=== PATIENT | female | born 1985 | race African-American/Black ===

== ENCOUNTER 2017-05-14 06:21 | Inpatient (IN) | payer OTHER ==
[~2017-05-14] VITALS: Ht 165.1 cm; Wt 113.4 kg
[2017-05-14] VITALS (11 sets, daily range): BP systolic 121–151; BP diastolic 54–79
[~2017-05-14 06:21] MED LIST: CYCLOBENZAPRINE10 MG ORAL; OXYCODONE HCL20 M1 ORAL
[2017-05-14] MEDS ORDERED: LR 1000ml 1,000 ML IVLG SCH (07:17)
--- NOTE | 2017-05-14 07:19 | Anethesia Preoperative Eval ---
Anesthesia Pre-op PMH/ROS General Date of Evaluation: May 14, 2017 Time of Evaluation: 09:01 Anesthesiologist: Valery ASA Score: ASA 2 Mallampati Score Class I : Soft palate, uvula, fauces, pillars visible Class II: Soft palate, uvula, fauces visible Class III: Soft palate, base of uvula visible Class IV: Only hard plate visible Mallampati Classification: Class II Surgeon: Carol Diagnosis: Back Pain Surgical Procedure: ALIF L4-5, L5-S1, PSF L5-S1 Anesthesia History: none Family History: no anesthesia problems Allergies: Coded Allergies: LATEX (Verified Allergy, Mild, SKIN RASH, 05/14/17) Medications: see eMAR Past Medical History Cardiovascular: Reports: HTN Pulmonary: Reports: other - Bronchitis Other: obesity - BMI 43 Anesthesia Pre-op Phys. Exam Physician Exam Vital Signs Date Time Temp Pulse Resp B/P (MAP) Pulse Ox O2 Delivery O2 Flow Rate FiO2 05/14/17 07:19 97.2 78 20 121/66 98 Room Air Constitutional: NAD Neurologic: CN 2-12 intact Cardiovascular: RRR Respiratory: CTA Gastrointestinal: S/NT/ND Airway Exam Mallampati Score: Class II MO: limited ROM: limited Teeth: intact Anesthesia Pre-op A/P Labs Urine Test Test 05/14/17 06:45 Urine HCG, Qualitative Negative Risk Assessment & Plan Assessment: ASA 2 Plan: GA, BIS, Glidescope Status Change Before Surgery: No Pre-Antibiotics Dru Grams Ancef IV Given Within 1 Hr of Incision: Yes Time Given: 09:16 Chepe Rasmussen MD May 14, 2017 07:19
[2017-05-14] MEDS ORDERED: Norco 5mg/325mg tab ORAL PRN ×2 (07:30→15:15)
[2017-05-14] MEDS ORDERED: Acetaminophen (Non formulary) 100 ML IV ONE (07:30)
[2017-05-14] MEDS ORDERED: fentaNYL 100 mcg/2 mL IV PRN ×2 (07:30→15:15)
[2017-05-14] MEDS ORDERED: Ketorolac 60mg Inj IM PRN ×2 (07:30→15:15)
[2017-05-14] MEDS ORDERED: Hydromorphone 0.5mg/0.5ml inj IVP PRN ×2 (07:30→15:15)
[2017-05-14] MEDS ORDERED: Norco 7.5mg/325mg tab ORAL PRN ×2 (07:30→15:15)
[2017-05-14] MEDS ORDERED: Metoclopramide 10mg/2ml Inj IVP PRN (07:30)
[2017-05-14] MEDS ORDERED: oxyCODONE HCL/Acetaminophen 5/325mg ORAL PRN (07:30)
[2017-05-14] MEDS ORDERED: LORazepam Inj 2mg/ml 1ml IV PRN ×2 (07:30→15:15)
[2017-05-14] MEDS ORDERED: Ketorolac 30mg Inj IV PRN ×2 (07:30→15:15)
[2017-05-14] MEDS ORDERED: Midazolam 2mg/2ml Inj IVP PRN ×2 (07:30→15:15)
[2017-05-14] MEDS ORDERED: DiphenhydrAMINE 50mg/ml Inj IVP PRN ×2 (07:30→15:15)
[2017-05-14] MEDS ORDERED: Atropine Inj 1mg/10ml Syr IV PRN ×2 (07:30→15:15)
[2017-05-14] MEDS ORDERED: ceFAZolin 1gm in D5W 55ml IVP ONE (07:45)
[2017-05-14] MEDS ORDERED: Thrombin 5000 units TOPIC ONE (07:49)
[2017-05-14] MEDS ORDERED: Surgicel 4in x 8in TOPIC ONE (07:49)
[2017-05-14] MEDS ORDERED: Bupivacaine w/Epi 0.75% 30ml Vial INJ ONE (07:50)
[2017-05-14] MEDS ORDERED: Bupivacaine 0.5% Inj 30 ml vial INJ ONE (07:50)
[2017-05-14] MEDS ORDERED: Heparin 5000 units/ml inj ONE (07:50)
[2017-05-14] MEDS ORDERED: Lidocaine 1% Plain 30 ml INJ ONE ×2 (07:50→09:00)
[2017-05-14] MEDS ORDERED: Vancomycin 1gm inj IVPB ONE ×2 (07:50→14:00)
[2017-05-14] MEDS ORDERED: Bacitracin 50000 Units Vial ONE ×2 (07:50→15:26)
[2017-05-14] MEDS ORDERED: Dexamethasone 20mg/5ml ONE (07:59)
[2017-05-14] MEDS ORDERED: NS IVPB ONE (08:00)
[2017-05-14] MEDS ORDERED: DEXAMETHASONE IVPB ONE (08:00)
[2017-05-14] MEDS ORDERED: Dexamethasone 20mg/5ml IVP ONE (08:00)
[2017-05-14] MEDS ORDERED: Ropivacaine 5mg/ml Vial 30ml INJ ONE (08:07)
--- NOTE | 2017-05-14 08:34 | Immediate Post-Op Evaluation ---
Immediate Post-Op Evalulation Immediate Post-Op Evalulation Procedure: ALIF L4-5, L5-S1, PSF L5-S1 Date of Evaluation: May 14, 2017 Time of Evaluation: 15:34 IV Fluids: 1800 Blood Products: 0 Estimated Blood Loss: 100 Urinary Output: 200 Blood Pressure Systolic: 151 Blood Pressure Diastolic: 62 Pulse Rate: 93 Respiratory Rate: 16 O2 Sat by Pulse Oximetry: 100 Temperature (Fahrenheit): 98.5 Pain Score (1-10): 3 Nausea: No Vomiting: No Complications 0 Patient Status: awake, reacts, patent, extubated, none Hydration Status: adequate Dru Grams Ancef IV Given Within 1 Hr of Incision: Yes Time Given: 09:16 Chepe Rasmussen MD May 14, 2017 08:34
[2017-05-14] MEDS ORDERED: fentaNYL 100 mcg/2 mL IV ONE (09:00)
[2017-05-14] MEDS ORDERED: Sterile Water Irrig 1000ml IRRIG ONE (09:00)
[2017-05-14] MEDS ORDERED: NS Irrig 1000ml ONE (09:00)
[2017-05-14] MEDS ORDERED: LR 1000ml ONE (09:00)
[2017-05-14] MEDS ORDERED: Propofol 1,000mg/ 100ml btl IV ONE (09:00)
[2017-05-14] MEDS ORDERED: Propofol 200mg/20ml IV ONE (09:00)
[2017-05-14] MEDS ORDERED: Ketamine 500mg Inj ONE (09:00)
[2017-05-14] MEDS ORDERED: Glycopyrrolate 0.2mg/ml 1ml Vial ONE (09:00)
[2017-05-14] MEDS ORDERED: Neostigmine 1mg/ml 10ml Inj ONE (09:00)
[2017-05-14] MEDS ORDERED: Labetalol 5mg/ml 20ml vial IV ONE (09:00)
[2017-05-14] MEDS ORDERED: Lidocaine 1% MPF 10mg/ml 5ml ONE (09:00)
[2017-05-14] MEDS ORDERED: Zemuron 50mg/5ml Inj IV ONE (09:00)
--- NOTE | 2017-05-14 09:08 | Pre-Procedure Note/Attestation ---
Pre-Procedure Note/Attestation Complete Prior to Procedure Planned Procedure: not applicable Procedure Narrative: ALIF L4-5, L5-S1 Posterior Pedicle Screw L4-L5-S1 Indications for Procedure Pre-Operative Diagnosis: Post trauma back pain instability Attestation I attest that I discussed the nature of the procedure; its benefits; risks and complications; and alternatives (and the risks and benefits of such alternatives ), prior to the procedure, with the patient (or the patient's legal field marketing representative). I attest that, if there was a reasonable possibility of needing a blood transfusion, the patient (or the patient's legal field marketing representative) was given the [facility] standardized written summary, pursuant to the Neal Irwin Blood Safety Act ([place] Health and Safety Code # 1645, as amended). I attest that I re-evaluated the patient just prior to the surgery and that there has been no change in the patient's H&P, except as documented below: CHEO WEISS May 14, 2017 09:08
--- NOTE | 2017-05-14 09:08 | Pre-Procedure Note/Attestation ---
Pre-Procedure Note/Attestation Complete Prior to Procedure Planned Procedure: not applicable Procedure Narrative: ALIF L4-5, L5-S1 Posterior Pedicle Screw L4-L5-S1 Indications for Procedure Pre-Operative Diagnosis: Post trauma back pain instability Attestation I attest that I discussed the nature of the procedure; its benefits; risks and complications; and alternatives (and the risks and benefits of such alternatives ), prior to the procedure, with the patient (or the patient's legal associate sales representative). I attest that, if there was a reasonable possibility of needing a blood transfusion, the patient (or the patient's legal associate sales representative) was given the [facility] standardized written summary, pursuant to the Neal Irwin Blood Safety Act ([place] Health and Safety Code # 1645, as amended). I attest that I re-evaluated the patient just prior to the surgery and that there has been no change in the patient's H&P, except as documented below: CHEO WEISS May 14, 2017 09:08
--- NOTE | 2017-05-14 09:08 | Pre-Procedure Note/Attestation ---
Pre-Procedure Note/Attestation Complete Prior to Procedure Planned Procedure: not applicable Procedure Narrative: ALIF L4-5, L5-S1 Posterior Pedicle Screw L4-L5-S1 Indications for Procedure Pre-Operative Diagnosis: Post trauma back pain instability Attestation I attest that I discussed the nature of the procedure; its benefits; risks and complications; and alternatives (and the risks and benefits of such alternatives ), prior to the procedure, with the patient (or the patient's legal regional sales representative). I attest that, if there was a reasonable possibility of needing a blood transfusion, the patient (or the patient's legal regional sales representative) was given the [facility] standardized written summary, pursuant to the Neal Irwin Blood Safety Act ([place] Health and Safety Code # 1645, as amended). I attest that I re-evaluated the patient just prior to the surgery and that there has been no change in the patient's H&P, except as documented below: CHEO WEISS May 14, 2017 09:08
[2017-05-14] MEDS ORDERED: Naloxone 0.4mg/ml Inj IVP PRN (11:45)
[2017-05-14] MEDS ORDERED: Bacitracin 50000 Units Vial IRRIG ONE (12:30)
[2017-05-14] MEDS ORDERED: Lidocaine 1% 10mg/ml/EPI 0.01mg/ml 50ml INJ ONE (12:42)
--- NOTE | 2017-05-14 14:30 | Brief Operative Note ---
Immediate Post Operative Note Operative Note Pre-op Diagnosis: Post trauma back pain instability Procedure: ALIF L4-5, L5-S1 Posterior Pedicle Screw L4, S1 Facet fusion L4-5, L5-S1 SSEP High Power Body Habitus > 95th percentile for height Local Post-op Diagnosis: same as pre-op Findings: consistent w/pre-op dx studies Surgeon: Anterior: Carol / Jr Weiss Lumber Press Operator: Landry HENDERSON Anesthesiologist: Valery VALERIO Anesthesia: general Specimen: none Complications: none Condition: stable Fluids: anesthesia Estimated Blood Loss: volume - 100cc Drains: hemovac Implant(s) used?: Yes CHEO WEISS May 14, 2017 14:30
[2017-05-14] MEDS ORDERED: traMADol 50mg tab ORAL PRN (15:00)
[2017-05-14] MEDS ORDERED: Tylenol #3 tab (300mg/30mg) ORAL PRN (15:00)
[2017-05-14] MEDS ORDERED: PCA HYDROmorphone 1mg/ml 30 ML IV PRN ×3 (15:00→17:30)
[2017-05-14] MEDS ORDERED: oxyCODONE 5mg IR tab ORAL PRN ×2 (15:00)
--- NOTE | 2017-05-14 15:46 | Diagnostic Imaging Report ---
Indication: PAIN , intraoperative, low back pain Technique: Intraoperative images Comparison: None Findings: Intraoperative images demonstrate localizing needle at what is presumably L5-S1 on the lateral view. Subsequent images document placement disc spacers at L4-5 and L5-S1, and posterior fusion hardware bridging L4-S1 Impression: Intraoperative imaging, as described
--- NOTE | 2017-05-14 16:16 | Operative Note - Dictated ---
DATE OF OPERATION: 05/14/2017 VASCULAR SURGEON: Alex Norris M.D. SPINE SURGEON: Bert Medina M.D. PREOPERATIVE DIAGNOSIS: Degenerative disk disease. POSTOPERATIVE DIAGNOSIS: Degenerative disk disease. PROCEDURES PERFORMED: 1. Anterior retroperitoneal exposure of L4-L5 vertebral interspace. 2. Anterior retroperitoneal exposure of L5-S1 vertebral interspace. INDICATIONS: The patient is a very pleasant woman, who is seen in my office prior to surgery. She has been scheduled for anterior fusion at L4-L5 and L5-S1. She has no prior history of anterior abdominal surgery. No history of deep venous thrombosis or bleeding complications were described. She has been made aware of the need for a vertical midline incision and left retroperitoneal approach, possibility of vascular injury, possible need for blood transfusion, and deep venous thrombosis were explicitly discussed. DESCRIPTION OF FINDINGS: A low vertical midline incision was used. A left retroperitoneal approach was used. There is no peritoneal or ureteral violation. There is no vascular injury. Exposure of L5-S1 was obtained below the iliac bifurcation with retraction of the left common iliac artery and vein superiorly and laterally and exposure of L4-L5 was obtained by retraction of the left iliac artery and vein towards the patient's right and confirmed using fluoroscopy. On completion, the peritoneum and ureter were intact and iliac vessels were intact. Blood loss was less than 50 mL and complications were none. DESCRIPTION OF PROCEDURE: The patient was taken to the operating room. General anesthesia was used. IV antibiotics were given. The patient's abdomen was prepped and draped. Appropriate time-out for procedure taken. A low vertical midline incision was made infraumbilically. The anterior fascia was incised longitudinally in the midline. A plane identified posterior to the left rectus abdominis developed posterolaterally towards the patient's left. The retroperitoneal space was entered below the arcuate line. The peritoneum and ureter were mobilized towards the patient's right exposing the left common iliac artery and vein. Initially, dissection was carried on the undersurface of the left common iliac vein. The middle sacral artery and vein were identified and ligated with vascular clips and divided and this allowed us to retract the left iliac vessels superiorly and laterally and we placed the Omni retractor. At this time, fluoroscopy was used to confirm the appropriate level and the instrumentation was performed at L5-S1, dictated separately. The retractors were then repositioned above the iliac bifurcation. Dissection was carried on the left side of left iliac artery and vein. The iliolumbar vein was identified and encircled using a 2-0 silk tie and triply ligated proximally and distally with vascular clips. The L4 segmental artery and vein were also identified, ligated with vascular clips, and divided. This allowed us to retract the left iliac artery and vein towards the patient's right exposing the anterior surface of the L4-L5. The Omni retractor was set in place and then instrumentation and fusion were performed at L4-L5, dictated separately. On completion, the peritoneum and ureter were intact. Iliac vessels were intact. The anterior fascia was closed using #1 PDS in a running fashion. The skin and subcutaneous tissue were closed with 3-0 Vicryl and 4-0 Monocryl in a running subcuticular closure technique. ESTIMATED BLOOD LOSS: Less than 100 mL. COMPLICATIONS: None. Alex Norris M.D. DR: DAKOTA JOB#: [id number] CC:
[2017-05-14] MEDS: HYDROmorphone 1mg/ml Carpuject SUBQ PRN ×2 (17:25→20:50)
[2017-05-14] MEDS: D5 1/2NS 1,000 ML IV SCH (17:25)
[2017-05-14] MEDS ORDERED: Rate Change PCA 1 Each MISC PRN (17:30)
[2017-05-14] MEDS ORDERED: PCA Education Pamphlet MISC ONE (17:30)
[2017-05-14] MEDS ORDERED: Milk of Magnesia 30ml Ud ORAL PRN (17:30)
--- NOTE | 2017-05-14 17:47 | Operative Note - Dictated ---
DATE OF OPERATION: 05/14/2017 SURGEON: Bert Medina, Ph. D., M.D. CO-SURGEON: Anterior fusion vascular approach, Dr. Norris. Please see separate dictation for approach and closure with Dr. Medina assist, posterior. VENEREAL DISEASE CONTROL HEAD: SANTIAGO Ziegler. ANESTHESIA: General with intubation, Dr. Rasmussen. ESTIMATED BLOOD LOSS: 100 mL. DRAINS: One Hemovac to self suction posterior. ADMITTING/PREOPERATIVE DIAGNOSIS: Posttraumatic lumbar spine instability/back pain. POSTOPERATIVE DIAGNOSIS: Posttraumatic lumbar spine instability/back pain. OPERATIVE PROCEDURE: 1. The patient's body habitus greater than 95th percentile for height increasing complexity of surgery and postoperative care, anterior and posterior. 2. Anterior interbody reconstruction and fusion with internal fixation. 3. Bone morphogenic protein placement and fusion, Aero-L L4-L5, L5-S1. 4. Posterior pedicle screw instrumentation, bilateral S1, bilateral L4, facet fusion L4-L5 and L5-S1 bilaterally. 5. SSEP monitoring, anterior/posterior. 6. High-power magnification dissection anterior/posterior and posterior. LOCAL ANESTHETIC: A 1% lidocaine without epinephrine. DESCRIPTION OF PROCEDURE: The patient was brought to the operative room in the supine position. General anesthesia with intubation was induced. IV vancomycin and Decadron were administered 30 minutes prior to incision time. After appropriate positioning and sterile prep of the anterior abdomen and having been draped free in usual sterile fashion, anterior exposure was performed. Please see separate report. The identification of L5-S1 interval midline and correct level with fluoroscopic guidance in place was undertaken under sterile conditions. Level marked. Diskectomy with anterior annulotomy was performed L5-S1 with resection of disk tube but not through the posterior longitudinal ligament. Endplates denuded subchondral bleeding bone. Interpositional grafting appropriately dimensioned. Aero-L prosthesis with lordosis containing bone morphogenic protein and subsequent internal fixation. Fit excellent. Graft is incorporated in fibrin glue. Attention was turned to the L4-L5 interval. L4-L5 midline and correct level identified and needle placed 3 mm into the space and imaging obtained under sterile conditions. Level marked. Annulotomy performed. Diskectomy tube but not through the posterior longitudinal ligament. SSEP monitoring stable at all times. Interpositional grafting appropriately dimensioned. Aero-L graft lordotic containing bone morphogenic protein for fusion with internal fixation placed. Excellent fixation and placement. Fluoroscopic guidance confirmation. Closure, please see separate report. The patient was carefully turned and positioned on the new operating table. Prior operating table and all instrument instruments were removed. After appropriate positioning and opening of all new instruments, a spinal needle was placed sterilely through the back(-sterilely prepped) and a cross-table image was obtained demonstrating the correct level for incision placement. [place] were removed. Back was re-sterilely prepped and draped free in usual sterile fashion. A longitudinal incision was placed over the appropriate interval sharply in midline through dermis and epidermis. Electrocautery dissection was carried through extensor subcutaneous tissue to the level lumbodorsal fascia. The patient's body habitus greater than 95th percentile for height. Subperiosteal dissection of the paraspinal muscles was undertaken over the appropriate intervals. Confirmation with markers in place and fluoroscopic guidance under sterile conditions. Bilateral pedicle screws were placed with bicortical fixation, S1 6.5 mm screws. Position under direct observation as well as fluoroscopic guidance excellent. Purchase excellent. Screws were placed with sequential drilling of the posterior cortex probing of the pedicle, tapping, determination of cortical wall integrity with a ball-tip probe followed by screw insertion. The patient was not paralyzed at this juncture in time. Pedicle screw instrumentation with the same technique was undertaken appropriately at the L4 pedicles bilaterally. Excellent fixation. SSEP monitoring. No activity anytime during the procedure. Interconnecting rods placed after electrical stimulation of screws. Initial stimulation of the L4 screw left revealed 4.8 milliamps signal. Subsequent stimulation revealed no abnormal signal. Of note is that during placement and tapping, no EMG was determined or observed at any time during the placement. The screw position was maintained. Interconnecting rods torqued into appropriate position after copious irrigation. Fusions of the L4-L5 and L5-S1 facets bilaterally with local bone with Midas Sung bur utilization. Vancomycin powder 2 g placed. Reapproximation with Vicryl suture material for lumbodorsal fascia. Reapproximation of subcutaneous tissue in multiple layers with a Hemovac drain in place externalized with separate puncture site. Dermis and epidermis reapproximated followed the application of the sterile bandage and it was maintained in place with tape. The patient was carefully turned from the prone to the supine position on the transport bed where she was awakened, extubated in the operating room, and transported to postoperative recovery in good stable condition. Bert Medina M.D. DR: DYLON JOB#: [id number] CC:
[2017-05-14] MEDS: PCA shift volume MISC SCH (19:00)
[2017-05-14] MEDS: Docusate 100mg cap ORAL SCH (20:48)
[2017-05-14] MEDS: Vancomycin 1 GM in D5W 275 ML IVPB SCH (20:48)
[2017-05-14] MEDS: oxyCODONE 5mg IR tab ORAL PRN (22:55)
[2017-05-15] VITALS: BP 110/64
[2017-05-15] MEDS: oxyCODONE 5mg IR tab ORAL PRN ×5 (03:06→22:15)
[2017-05-15] MEDS: D5 1/2NS 1,000 ML IV SCH ×4 (03:15→17:34)
[2017-05-15 04:00] VITALS: BP 104/51
[2017-05-15] MEDS: Dronabinol 2.5mg Cap ORAL SCH ×3 (07:12→22:02)
[2017-05-15] MEDS: PCA shift volume MISC SCH ×2 (07:14→19:00)
[2017-05-15] MEDS ORDERED: PCA HYDROmorphone 1mg/ml 30 ML IV PRN ×3 (08:00→16:15)
[2017-05-15 08:11] VITALS: BP 114/69
[2017-05-15] MEDS: Vancomycin 1 GM in D5W 275 ML IVPB SCH (08:29)
[2017-05-15] MEDS: Docusate 100mg cap ORAL SCH ×2 (08:29→22:02)
[2017-05-15] MEDS ORDERED: Docusate 100mg cap ORAL SCH (09:00)
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
[2017-05-15 11:45] VITALS: BP 106/52
--- NOTE | 2017-05-15 16:00 | Progress Note ---
DATE: 05/15/2017 ACUTE PAIN MANAGEMENT PHYSICIAN PROGRESS NOTE MEDICATIONS: Medication administration record reviewed. Medications include Dilaudid BEN[employer]ISION ASSEMBLER, Tylenol, Mylanta, Soma, Cepacol, Benadryl, Colace, Marinol, p.r.n. Dilaudid, Zofran, oxycodone, and Protonix. LABORATORY STUDIES: No interval laboratory studies. OBJECTIVE: VITAL SIGNS: Pain level 8/10 on the visual analog pain scale, oxygen saturation 98%, afebrile, pulse 84, respirations 18, and blood pressure 104/51. I spent over 60 minutes in consultation today. I saw the patient at bedside with the nurse RN, Anastasia and discussed the case with the pharmacist, Radha. The patient use considerable dosing of her Dilaudid [employer]SEMBLER. The patient already had a considerable dose of 0.4 mg per bolus button dose every 12 minutes. The patient today admits using more medical marijuana than she previously admitted. She uses edibles throughout the day and smokes about a full bowl throughout the day as well. I therefore have to start her on [id number] Marinol 2.5 mg every eight hours for better baseline analgesia. The patient has used oxycodone 20 mg here in the hospital and has shown no over sedation, change that for higher dose and I will increase the dosing to 30 mg, which I will continue every three hours p.r.n. for mild breakthrough pain. The patient stated that she has been afraid of needles and has been refusing the subcutaneous Dilaudid injection, which I recommended. I strongly encouraged her to trial with subcutaneous Dilaudid injection and as that will help with breakthrough pain as well. The patient appears to be at very high risk for narcotic addiction. I would be very hesitant to start her on OxyContin controlled release, oxycodone at this time. The patient has been on high dose oxycodone for the past six months, putting her at significant risk for narcotic dependence, especially if started on potent opioid such as OxyContin extended release. I will continue with B[employer]SEMBLER at the current settings. She will continue with p.r.n. Soma. Her Hemovac drain remains in place. Hopefully, she will make good progress with physical therapy and start passing positive flatus so we can advance her diet. I did encourage incentive spirometer use. The patient has been asking for a nicotine patch, I will defer to Dr. Medina. She does have a sequential compression pneumatic devices for DVT prophylaxis. The patient is at significant risk for deep venous thrombosis due to the nature of surgery, her morbid obesity, and active tobacco usage. I did encourage aggressive incentive spirometer usage. Noé Raphael M.D. DR: JUAN JOSÉ JOB#: [id number] CC:
--- NOTE | 2017-05-15 16:00 | Progress Note ---
DATE: 05/15/2017 ACUTE PAIN MANAGEMENT PHYSICIAN PROGRESS NOTE MEDICATIONS: Medication administration record reviewed. Medications include Dilaudid CUT TO LENGTH OPERATOR, Tylenol, Mylanta, Soma, Cepacol, Benadryl, Colace, Marinol, p.r.n. Dilaudid, Zofran, oxycodone, and Protonix. LABORATORY STUDIES: No interval laboratory studies. OBJECTIVE: VITAL SIGNS: Pain level 8/10 on the visual analog pain scale, oxygen saturation 98%, afebrile, pulse 84, respirations 18, and blood pressure 104/51. I spent over 60 minutes in consultation today. I saw the patient at bedside with the nurse RN, Anastasia and discussed the case with the pharmacist, Radha. The patient use considerable dosing of her Dilaudid CUT TO LENGTH OPERATOR. The patient already had a considerable dose of 0.4 mg per bolus button dose every 12 minutes. The patient today admits using more medical marijuana than she previously admitted. She uses edibles throughout the day and smokes about a full bowl throughout the day as well. I therefore have to start her on [id number] Marinol 2.5 mg every eight hours for better baseline analgesia. The patient has used oxycodone 20 mg here in the hospital and has shown no over sedation, change that for higher dose and I will increase the dosing to 30 mg, which I will continue every three hours p.r.n. for mild breakthrough pain. The patient stated that she has been afraid of needles and has been refusing the subcutaneous Dilaudid injection, which I recommended. I strongly encouraged her to trial with subcutaneous Dilaudid injection and as that will help with breakthrough pain as well. The patient appears to be at very high risk for narcotic addiction. I would be very hesitant to start her on OxyContin controlled release, oxycodone at this time. The patient has been on high dose oxycodone for the past six months, putting her at significant risk for narcotic dependence, especially if started on potent opioid such as OxyContin extended release. I will continue with CUT TO LENGTH OPERATOR at the current settings. She will continue with p.r.n. Soma. Her Hemovac drain remains in place. Hopefully, she will make good progress with physical therapy and start passing positive flatus so we can advance her diet. I did encourage incentive spirometer use. The patient has been asking for a nicotine patch, I will defer to Dr. Medina. She does have a sequential compression pneumatic devices for DVT prophylaxis. The patient is at significant risk for deep venous thrombosis due to the nature of surgery, her morbid obesity, and active tobacco usage. I did encourage aggressive incentive spirometer usage. Noé Raphael M.D. DR: JUAN JOSÉ JOB#: [id number] CC:
--- NOTE | 2017-05-15 16:00 | Progress Note ---
DATE: 05/15/2017 ACUTE PAIN MANAGEMENT PHYSICIAN PROGRESS NOTE MEDICATIONS: Medication administration record reviewed. Medications include Dilaudid METAL SHAPING MACHINE OPERATOR, Tylenol, Mylanta, Soma, Cepacol, Benadryl, Colace, Marinol, p.r.n. Dilaudid, Zofran, oxycodone, and Protonix. LABORATORY STUDIES: No interval laboratory studies. OBJECTIVE: VITAL SIGNS: Pain level 8/10 on the visual analog pain scale, oxygen saturation 98%, afebrile, pulse 84, respirations 18, and blood pressure 104/51. I spent over 60 minutes in consultation today. I saw the patient at bedside with the nurse RN, Anastasia and discussed the case with the pharmacist, Radha. The patient use considerable dosing of her Dilaudid METAL SHAPING MACHINE OPERATOR. The patient already had a considerable dose of 0.4 mg per bolus button dose every 12 minutes. The patient today admits using more medical marijuana than she previously admitted. She uses edibles throughout the day and smokes about a full bowl throughout the day as well. I therefore have to start her on [id number] Marinol 2.5 mg every eight hours for better baseline analgesia. The patient has used oxycodone 20 mg here in the hospital and has shown no over sedation, change that for higher dose and I will increase the dosing to 30 mg, which I will continue every three hours p.r.n. for mild breakthrough pain. The patient stated that she has been afraid of needles and has been refusing the subcutaneous Dilaudid injection, which I recommended. I strongly encouraged her to trial with subcutaneous Dilaudid injection and as that will help with breakthrough pain as well. The patient appears to be at very high risk for narcotic addiction. I would be very hesitant to start her on OxyContin controlled release, oxycodone at this time. The patient has been on high dose oxycodone for the past six months, putting her at significant risk for narcotic dependence, especially if started on potent opioid such as OxyContin extended release. I will continue with METAL SHAPING MACHINE OPERATOR at the current settings. She will continue with p.r.n. Soma. Her Hemovac drain remains in place. Hopefully, she will make good progress with physical therapy and start passing positive flatus so we can advance her diet. I did encourage incentive spirometer use. The patient has been asking for a nicotine patch, I will defer to Dr. Medina. She does have a sequential compression pneumatic devices for DVT prophylaxis. The patient is at significant risk for deep venous thrombosis due to the nature of surgery, her morbid obesity, and active tobacco usage. I did encourage aggressive incentive spirometer usage. Noé Raphael M.D. DR: JUAN JOSÉ JOB#: [id number] CC:
[2017-05-15 16:24] VITALS: BP 124/59
[2017-05-15 20:00] VITALS: BP 123/59
[2017-05-16 00:17] VITALS: BP 104/57
[2017-05-16] MEDS: D5 1/2NS 1,000 ML IV SCH ×3 (02:14→18:00)
[2017-05-16] MEDS: oxyCODONE 5mg IR tab ORAL PRN ×4 (02:27→22:25)
[2017-05-16 04:26] VITALS: BP 115/72
[2017-05-16] MEDS: Dronabinol 2.5mg Cap ORAL SCH ×3 (06:23→21:29)
[2017-05-16] MEDS: PCA shift volume MISC SCH ×2 (07:00→19:00)
[2017-05-16 08:00] VITALS: BP 124/55
[2017-05-16] MEDS: Docusate 100mg cap ORAL SCH ×2 (09:37→21:06)
[2017-05-16] MEDS ORDERED: Chloraseptic Spray 20mL Bottle ORAL PRN (10:00)
[2017-05-16 12:00] VITALS: BP 135/61
--- NOTE | 2017-05-16 14:43 | Orthopedic Spine Progress Note ---
Ortho Spine - Progress Note Subjective Symptoms: improved Objective Vital Signs: Last 24 Hour Vital Signs Date Time Temp Pulse Resp B/P (MAP) Pulse Ox O2 Delivery O2 Flow Rate FiO2 05/16/17 12:00 98.5 86 19 135/61 98 Room Air 05/16/17 11:10 98.5 05/16/17 08:00 98.9 93 19 124/55 96 Room Air 05/16/17 04:26 97.5 92 17 115/72 97 Room Air 05/16/17 04:00 18 05/16/17 00:17 101.0 104 20 104/57 98 Room Air 05/16/17 00:00 18 05/15/17 20:00 98.6 99 18 123/59 94 Room Air 05/15/17 20:00 18 05/15/17 16:24 97.9 94 20 124/59 99 Room Air 05/15/17 16:00 18 05/15/17 15:50 18 Drains: none Neuro Status: normal Assessment Procedure Performed: ALIF L4-5, L5-S1 Posterior Pedicle Screw L4, S1 Facet fusion L4-5, L5-S1 SSEP High Power Body Habitus > 95th percentile for height Local Plan Plan: PT, pain management CHEO WEISS May 16, 2017 14:43
[2017-05-16] MEDS ORDERED: D5 1/2NS 1000ml IV ONE (15:23)
[2017-05-16 16:00] VITALS: BP 124/65
[2017-05-16 20:51] VITALS: BP 119/66
[2017-05-17 00:41] VITALS: BP 108/50
--- NOTE | 2017-05-17 01:15 | Progress Note ---
DATE: 05/16/2017 ACUTE PAIN MANAGEMENT PHYSICIAN PROGRESS NOTE MEDICATIONS: Medication administration record reviewed. Medications include Protonix, oral oxycodone, CRUSHER SUPERVISOR Dilaudid, breakthrough Dilaudid, Marinol, Colace, Benadryl, Soma, Mylanta, Tylenol. LABORATORY STUDIES: No interval laboratory studies. PHYSICAL EXAMINATION: VITAL SIGNS: Afebrile, pulse 93, respirations 18, blood pressure 124/55, oxygen saturation 96% on room air. I spent over 60 minutes in consultation today. I saw the patient at bedside with the nurse RN, Fawn. I discussed the case in detail with the surgeon, Dr. Medina. The patient was able to ambulate with physical therapy. Her Joshua catheter was removed this morning with beginning dosing with the q.8 h. oral Marinol. The patient has been much less anxious and has been able to ambulate out of bed. She continues to use the high dose CRUSHER SUPERVISOR unit and has been tolerating the oral oxycodone at a higher dose of 30 mg without any over sedation. I will continue the CRUSHER SUPERVISOR for another 24 hours. I encouraged the patient to request the oxycodone nearly every three hours around the clock for baseline analgesia in combination with the Marinol to help reduce her usage of the Dilaudid CRUSHER SUPERVISOR. She will continue to have p.r.n. doses of Soma available along with subcutaneous Dilaudid for breakthrough pain. After anterior approach lumbar spine fusion surgery, the patient is having active bowel sounds. She has not yet had any positive flatus. Her diet will continue to be NPO except for medications and ice chips until she has better evidence of gnosticist of bowel function, with positive flatus signs. The patient remains on IV fluids for adequate rehydration. At the bedside, I demonstrated proper use of the incentive spirometer with this patient who actively smokes tobacco or marijuana, to encourage good pulmonary toilet to help with his risk of postoperative pneumonia and atelectasis. She will continue advancing her regimen of physical therapy as tolerated. Sequential compression pneumatic device for DVT prophylaxis. Noé Raphael M.D. DR: Patel JOB#: [id number] CC:
--- NOTE | 2017-05-17 01:15 | Progress Note ---
DATE: 05/16/2017 ACUTE PAIN MANAGEMENT PHYSICIAN PROGRESS NOTE MEDICATIONS: Medication administration record reviewed. Medications include Protonix, oral oxycodone, SOAP CHIPPER Dilaudid, breakthrough Dilaudid, Marinol, Colace, Benadryl, Soma, Mylanta, Tylenol. LABORATORY STUDIES: No interval laboratory studies. PHYSICAL EXAMINATION: VITAL SIGNS: Afebrile, pulse 93, respirations 18, blood pressure 124/55, oxygen saturation 96% on room air. I spent over 60 minutes in consultation today. I saw the patient at bedside with the nurse RN, Fawn. I discussed the case in detail with the surgeon, Dr. Medina. The patient was able to ambulate with physical therapy. Her Joshua catheter was removed this morning with beginning dosing with the q.8 h. oral Marinol. The patient has been much less anxious and has been able to ambulate out of bed. She continues to use the high dose SOAP CHIPPER unit and has been tolerating the oral oxycodone at a higher dose of 30 mg without any over sedation. I will continue the SOAP CHIPPER for another 24 hours. I encouraged the patient to request the oxycodone nearly every three hours around the clock for baseline analgesia in combination with the Marinol to help reduce her usage of the Dilaudid SOAP CHIPPER. She will continue to have p.r.n. doses of Soma available along with subcutaneous Dilaudid for breakthrough pain. After anterior approach lumbar spine fusion surgery, the patient is having active bowel sounds. She has not yet had any positive flatus. Her diet will continue to be NPO except for medications and ice chips until she has better evidence of holiness of bowel function, with positive flatus signs. The patient remains on IV fluids for adequate rehydration. At the bedside, I demonstrated proper use of the incentive spirometer with this patient who actively smokes tobacco or marijuana, to encourage good pulmonary toilet to help with his risk of postoperative pneumonia and atelectasis. She will continue advancing her regimen of physical therapy as tolerated. Sequential compression pneumatic device for DVT prophylaxis. Noé Raphael M.D. DR: Patel JOB#: [id number] CC:
--- NOTE | 2017-05-17 01:15 | Progress Note ---
DATE: 05/16/2017 ACUTE PAIN MANAGEMENT PHYSICIAN PROGRESS NOTE MEDICATIONS: Medication administration record reviewed. Medications include Protonix, oral oxycodone, ELDERLY CAREGIVER Dilaudid, breakthrough Dilaudid, Marinol, Colace, Benadryl, Soma, Mylanta, Tylenol. LABORATORY STUDIES: No interval laboratory studies. PHYSICAL EXAMINATION: VITAL SIGNS: Afebrile, pulse 93, respirations 18, blood pressure 124/55, oxygen saturation 96% on room air. I spent over 60 minutes in consultation today. I saw the patient at bedside with the nurse RN, Fawn. I discussed the case in detail with the surgeon, Dr. Medina. The patient was able to ambulate with physical therapy. Her Joshua catheter was removed this morning with beginning dosing with the q.8 h. oral Marinol. The patient has been much less anxious and has been able to ambulate out of bed. She continues to use the high dose ELDERLY CAREGIVER unit and has been tolerating the oral oxycodone at a higher dose of 30 mg without any over sedation. I will continue the ELDERLY CAREGIVER for another 24 hours. I encouraged the patient to request the oxycodone nearly every three hours around the clock for baseline analgesia in combination with the Marinol to help reduce her usage of the Dilaudid ELDERLY CAREGIVER. She will continue to have p.r.n. doses of Soma available along with subcutaneous Dilaudid for breakthrough pain. After anterior approach lumbar spine fusion surgery, the patient is having active bowel sounds. She has not yet had any positive flatus. Her diet will continue to be NPO except for medications and ice chips until she has better evidence of latter-day of bowel function, with positive flatus signs. The patient remains on IV fluids for adequate rehydration. At the bedside, I demonstrated proper use of the incentive spirometer with this patient who actively smokes tobacco or marijuana, to encourage good pulmonary toilet to help with his risk of postoperative pneumonia and atelectasis. She will continue advancing her regimen of physical therapy as tolerated. Sequential compression pneumatic device for DVT prophylaxis. Noé Raphael M.D. DR: Patel JOB#: [id number] CC:
[2017-05-17] MEDS: D5 1/2NS 1,000 ML IV SCH ×4 (02:00→22:55)
[2017-05-17] MEDS: oxyCODONE 5mg IR tab ORAL PRN ×3 (02:34→15:50)
[2017-05-17 03:24] VITALS: BP 121/64
[2017-05-17] MEDS: Dronabinol 2.5mg Cap ORAL SCH ×3 (05:50→20:29)
[2017-05-17] MEDS: PCA shift volume MISC SCH ×2 (07:00→19:00)
[2017-05-17] MEDS: HYDROmorphone 1mg/ml Carpuject SUBQ PRN ×2 (07:22→20:28)
[2017-05-17 08:00] VITALS: BP 98/61
[2017-05-17] MEDS: Docusate 100mg cap ORAL SCH ×2 (09:11→20:28)
[2017-05-17 12:00] VITALS: BP 102/43
[2017-05-17 16:00] VITALS: BP 100/42
--- NOTE | 2017-05-17 17:30 | Progress Note ---
DATE: 05/17/2014 ACUTE PAIN MANAGEMENT PHYSICIAN PROGRESS NOTE MEDICATIONS: Medication administration record reviewed. Medications include Protonix, oxycodone, Dilaudid NON DESTRUCTIVE TESTING SCIENTIST, subcutaneous Dilaudid, Marinol, Colace, Benadryl, Soma, Mylanta, and Tylenol. LABORATORY STUDIES: No interval laboratory studies. OBJECTIVE: VITAL SIGNS: Pain level 9/10 on the visual analog pain scale. Low-grade fever 99.8, pulse 93, respirations 15, blood pressure 121/64, and oxygen saturation 98% on room air. I spent over 60 minutes in consultation today. I saw the patient at bedside after discussion with the surgeon, Dr. Medina. Dr. Medina removed the patient's indwelling lumbar spine drain catheter yesterday. I spoke with the overnight nurse RN, Edward, who has been trying to have the patient ambulate more frequently. She is getting out of bed to go to avoid urine. She has walked in the hallways a couple times overnight. She still remains rather sedentary and noncompliant using her incentive spirometer. With her low-grade fevers and her heavy smoking history, I did encourage much more aggressive use of incentive spirometer to avoid postoperative atelectasis and fevers. The patient still has not had any flatus. Her abdomen is beginning to become moderately distended. Hopefully, with some continued ambulation, she will began passing gas. Certainly the very high and frequent doses of opioid narcotics are denying her gastrointestinal recovery after anterior lumbar interbody fusion procedure. The patient continues to alternate oral oxycodone with Soma. She also continues using high doses of the NON DESTRUCTIVE TESTING SCIENTIST Dilaudid unit. I finally was able to convince the patient to trial the subcutaneous Dilaudid injection this morning. I hope this will enable her to discontinue off the NON DESTRUCTIVE TESTING SCIENTIST when this final syringe is used up. I recommend sequential compression pneumatic devices for continued DVT prophylaxis in this patient. She is 31 years old and should become more ambulatory as tolerated to help with her recovery. Noé Raphael M.D. DR: GIAN JOB#: [id number] CC:
--- NOTE | 2017-05-17 17:30 | Progress Note ---
DATE: 05/17/2014 ACUTE PAIN MANAGEMENT PHYSICIAN PROGRESS NOTE MEDICATIONS: Medication administration record reviewed. Medications include Protonix, oxycodone, Dilaudid EPIDEMIOLOGY INTERN, subcutaneous Dilaudid, Marinol, Colace, Benadryl, Soma, Mylanta, and Tylenol. LABORATORY STUDIES: No interval laboratory studies. OBJECTIVE: VITAL SIGNS: Pain level 9/10 on the visual analog pain scale. Low-grade fever 99.8, pulse 93, respirations 15, blood pressure 121/64, and oxygen saturation 98% on room air. I spent over 60 minutes in consultation today. I saw the patient at bedside after discussion with the surgeon, Dr. Medina. Dr. Medina removed the patient's indwelling lumbar spine drain catheter yesterday. I spoke with the overnight nurse RN, Edward, who has been trying to have the patient ambulate more frequently. She is getting out of bed to go to avoid urine. She has walked in the hallways a couple times overnight. She still remains rather sedentary and noncompliant using her incentive spirometer. With her low-grade fevers and her heavy smoking history, I did encourage much more aggressive use of incentive spirometer to avoid postoperative atelectasis and fevers. The patient still has not had any flatus. Her abdomen is beginning to become moderately distended. Hopefully, with some continued ambulation, she will began passing gas. Certainly the very high and frequent doses of opioid narcotics are denying her gastrointestinal recovery after anterior lumbar interbody fusion procedure. The patient continues to alternate oral oxycodone with Soma. She also continues using high doses of the EPIDEMIOLOGY INTERN Dilaudid unit. I finally was able to convince the patient to trial the subcutaneous Dilaudid injection this morning. I hope this will enable her to discontinue off the EPIDEMIOLOGY INTERN when this final syringe is used up. I recommend sequential compression pneumatic devices for continued DVT prophylaxis in this patient. She is 31 years old and should become more ambulatory as tolerated to help with her recovery. Noé Raphael M.D. DR: GIAN JOB#: [id number] CC:
--- NOTE | 2017-05-17 17:30 | Progress Note ---
DATE: 05/17/2014 ACUTE PAIN MANAGEMENT PHYSICIAN PROGRESS NOTE MEDICATIONS: Medication administration record reviewed. Medications include Protonix, oxycodone, Dilaudid SPECIALTY SALES CONSULTANT, subcutaneous Dilaudid, Marinol, Colace, Benadryl, Soma, Mylanta, and Tylenol. LABORATORY STUDIES: No interval laboratory studies. OBJECTIVE: VITAL SIGNS: Pain level 9/10 on the visual analog pain scale. Low-grade fever 99.8, pulse 93, respirations 15, blood pressure 121/64, and oxygen saturation 98% on room air. I spent over 60 minutes in consultation today. I saw the patient at bedside after discussion with the surgeon, Dr. Medina. Dr. Medina removed the patient's indwelling lumbar spine drain catheter yesterday. I spoke with the overnight nurse RN, Edward, who has been trying to have the patient ambulate more frequently. She is getting out of bed to go to avoid urine. She has walked in the hallways a couple times overnight. She still remains rather sedentary and noncompliant using her incentive spirometer. With her low-grade fevers and her heavy smoking history, I did encourage much more aggressive use of incentive spirometer to avoid postoperative atelectasis and fevers. The patient still has not had any flatus. Her abdomen is beginning to become moderately distended. Hopefully, with some continued ambulation, she will began passing gas. Certainly the very high and frequent doses of opioid narcotics are denying her gastrointestinal recovery after anterior lumbar interbody fusion procedure. The patient continues to alternate oral oxycodone with Soma. She also continues using high doses of the SPECIALTY SALES CONSULTANT Dilaudid unit. I finally was able to convince the patient to trial the subcutaneous Dilaudid injection this morning. I hope this will enable her to discontinue off the SPECIALTY SALES CONSULTANT when this final syringe is used up. I recommend sequential compression pneumatic devices for continued DVT prophylaxis in this patient. She is 31 years old and should become more ambulatory as tolerated to help with her recovery. Noé Raphael M.D. DR: GIAN JOB#: [id number] CC:
[2017-05-17 20:00] VITALS: BP 121/59
[2017-05-18 00:02] VITALS: BP 150/89
[2017-05-18] MEDS: oxyCODONE 5mg IR tab ORAL PRN ×2 (01:16→04:43)
[2017-05-18 04:00] VITALS: BP 111/62
[2017-05-18] MEDS: Dronabinol 2.5mg Cap ORAL SCH ×3 (05:49→21:12)
[2017-05-18] MEDS: D5 1/2NS 1,000 ML IV SCH ×2 (05:51→17:26)
[2017-05-18] MEDS: PCA shift volume MISC SCH ×2 (07:11→19:09)
[2017-05-18] MEDS ORDERED: Naloxone 0.4mg/ml Inj IVP PRN (07:15)
[2017-05-18] MEDS ORDERED: HYDROmorphone 1mg/ml Carpuject SUBQ PRN (07:15)
[2017-05-18] MEDS ORDERED: oxyCODONE 5mg IR tab ORAL PRN (07:30)
[2017-05-18] MEDS ORDERED: PCA HYDROmorphone 1mg/ml 30 ML IV PRN (07:30)
[2017-05-18] MEDS: oxyCODONE 15mg IR tab ORAL PRN ×4 (07:52→23:22)
[2017-05-18 07:58] VITALS: BP 103/53
[2017-05-18] MEDS: Docusate 100mg cap ORAL SCH ×2 (09:00→21:12)
[2017-05-18] MEDS ORDERED: D5 1/2NS 1000ml IV ONE (09:14)
--- NOTE | 2017-05-18 10:45 | Progress Note ---
DATE: 05/18/2017 ACUTE PAIN MANAGEMENT PHYSICIAN PROGRESS NOTE MEDICATIONS: Medication administration record reviewed. Medication include Protonix, oxycodone, BRAKE OPERATOR SHEET METAL Dilaudid, subcutaneous Dilaudid, Marinol, Colace, Benadryl, Soma, Mylanta, and Tylenol. LABORATORY STUDIES: No interval laboratory studies. OBJECTIVE: VITAL SIGNS: Within normal limits. Blood pressure 111/62, oxygen saturation 96% on room air, respirations 18, afebrile, and pulse 92. I saw the patient at the bedside. I spent over 60 minutes in consultation today. I discussed the case with the night nurse RN, Thien and day nurse, Dinora. The patient has been using the incentive spirometer much more aggressively, has been coughing up plenty of phlegm. She is an active tobacco and marijuana smoker. An incentive spirometer hopefully will continue to keep her afebrile and reduced pulmonary atelectasis with her significant concomitant obesity, body mass index 42. The patient denies any shortness of breath or chest pain. The patient shows no signs at all of over sedation despite the frequent dosing of scheduled Marinol along with repeated doses of breakthrough oxycodone 30 mg instant release and even the subcutaneous Dilaudid, which she is now accepting. I have instructed the nurses to discontinue the BRAKE OPERATOR SHEET METAL as soon as the spinal syringe is used up. The patient remains on IV fluids. Since she has not had significant flatus, the patient believes she may have had a small flatus this morning. Once the volume increases, hopefully with more ambulation this morning, the nurse will contact the surgeon, Dr. Medina, to see if Dr. Medina will advance her diet. Once the patient's diet is advanced, we will try to Hep-Lock her IV fluids in order to make it easier to ambulate out of bed. Certainly, increased ambulation is the best therapy for the patient at this time. She has been able to walk 75 feet with physical therapy a few times per day. She also frequently goes to the restroom with assistance. The patient continues to use Soma tablets as a muscle relaxant agent and I will continue her on Protonix for GI ulcer prophylaxis at this time. She will continue with sequential compression pneumatic devices in place for DVT prophylaxis. Noé Raphael M.D. DR: JUAN JOSÉ JOB#: [id number] CC:
--- NOTE | 2017-05-18 10:45 | Progress Note ---
DATE: 05/18/2017 ACUTE PAIN MANAGEMENT PHYSICIAN PROGRESS NOTE MEDICATIONS: Medication administration record reviewed. Medication include Protonix, oxycodone, PASTRY FINISHER Dilaudid, subcutaneous Dilaudid, Marinol, Colace, Benadryl, Soma, Mylanta, and Tylenol. LABORATORY STUDIES: No interval laboratory studies. OBJECTIVE: VITAL SIGNS: Within normal limits. Blood pressure 111/62, oxygen saturation 96% on room air, respirations 18, afebrile, and pulse 92. I saw the patient at the bedside. I spent over 60 minutes in consultation today. I discussed the case with the night nurse RN, Thien and day nurse, Dinora. The patient has been using the incentive spirometer much more aggressively, has been coughing up plenty of phlegm. She is an active tobacco and marijuana smoker. An incentive spirometer hopefully will continue to keep her afebrile and reduced pulmonary atelectasis with her significant concomitant obesity, body mass index 42. The patient denies any shortness of breath or chest pain. The patient shows no signs at all of over sedation despite the frequent dosing of scheduled Marinol along with repeated doses of breakthrough oxycodone 30 mg instant release and even the subcutaneous Dilaudid, which she is now accepting. I have instructed the nurses to discontinue the PASTRY FINISHER as soon as the spinal syringe is used up. The patient remains on IV fluids. Since she has not had significant flatus, the patient believes she may have had a small flatus this morning. Once the volume increases, hopefully with more ambulation this morning, the nurse will contact the surgeon, Dr. Medina, to see if Dr. Medina will advance her diet. Once the patient's diet is advanced, we will try to Hep-Lock her IV fluids in order to make it easier to ambulate out of bed. Certainly, increased ambulation is the best therapy for the patient at this time. She has been able to walk 75 feet with physical therapy a few times per day. She also frequently goes to the restroom with assistance. The patient continues to use Soma tablets as a muscle relaxant agent and I will continue her on Protonix for GI ulcer prophylaxis at this time. She will continue with sequential compression pneumatic devices in place for DVT prophylaxis. Noé Raphael M.D. DR: JUAN JOSÉ JOB#: [id number] CC:
--- NOTE | 2017-05-18 10:45 | Progress Note ---
DATE: 05/18/2017 ACUTE PAIN MANAGEMENT PHYSICIAN PROGRESS NOTE MEDICATIONS: Medication administration record reviewed. Medication include Protonix, oxycodone, HAND SPLITTER Dilaudid, subcutaneous Dilaudid, Marinol, Colace, Benadryl, Soma, Mylanta, and Tylenol. LABORATORY STUDIES: No interval laboratory studies. OBJECTIVE: VITAL SIGNS: Within normal limits. Blood pressure 111/62, oxygen saturation 96% on room air, respirations 18, afebrile, and pulse 92. I saw the patient at the bedside. I spent over 60 minutes in consultation today. I discussed the case with the night nurse RN, Thien and day nurse, Dinora. The patient has been using the incentive spirometer much more aggressively, has been coughing up plenty of phlegm. She is an active tobacco and marijuana smoker. An incentive spirometer hopefully will continue to keep her afebrile and reduced pulmonary atelectasis with her significant concomitant obesity, body mass index 42. The patient denies any shortness of breath or chest pain. The patient shows no signs at all of over sedation despite the frequent dosing of scheduled Marinol along with repeated doses of breakthrough oxycodone 30 mg instant release and even the subcutaneous Dilaudid, which she is now accepting. I have instructed the nurses to discontinue the HAND SPLITTER as soon as the spinal syringe is used up. The patient remains on IV fluids. Since she has not had significant flatus, the patient believes she may have had a small flatus this morning. Once the volume increases, hopefully with more ambulation this morning, the nurse will contact the surgeon, Dr. Medina, to see if Dr. Medina will advance her diet. Once the patient's diet is advanced, we will try to Hep-Lock her IV fluids in order to make it easier to ambulate out of bed. Certainly, increased ambulation is the best therapy for the patient at this time. She has been able to walk 75 feet with physical therapy a few times per day. She also frequently goes to the restroom with assistance. The patient continues to use Soma tablets as a muscle relaxant agent and I will continue her on Protonix for GI ulcer prophylaxis at this time. She will continue with sequential compression pneumatic devices in place for DVT prophylaxis. Noé Raphael M.D. DR: JUAN JOSÉ JOB#: [id number] CC:
[2017-05-18 12:00] VITALS: BP 149/96
[2017-05-18 16:00] VITALS: BP 121/61
[2017-05-18 20:00] VITALS: BP 128/59
[2017-05-19] VITALS (7 sets, daily range): BP systolic 107–137; BP diastolic 54–74
[2017-05-19] MEDS: oxyCODONE 15mg IR tab ORAL PRN ×5 (04:40→22:30)
[2017-05-19] MEDS: Dronabinol 2.5mg Cap ORAL SCH ×3 (06:06→21:10)
[2017-05-19] MEDS: Docusate 100mg cap ORAL SCH ×2 (08:51→21:10)
[2017-05-19] MEDS ORDERED: Naloxone 0.4mg/ml Inj IVP PRN (14:45)
[2017-05-19] MEDS ORDERED: HYDROmorphone 1mg/ml Carpuject SUBQ PRN (16:15)
--- NOTE | 2017-05-19 17:15 | Progress Note ---
DATE: 05/19/2017 ACUTE PAIN MANAGEMENT PHYSICIAN PROGRESS NOTE MEDICATIONS: Medication administration record reviewed. Medication include Protonix, , Zofran, Dilaudid, Marinol, Colace, Benadryl, Cepacol, Soma, Mylanta, and Tylenol. LABORATORY STUDIES: No interval laboratory studies. OBJECTIVE: VITAL SIGNS: Pain level 7/10 on the visual analog pain scale. Temperature afebrile. Pulse 86, respirations 19, blood pressure 136/65, and oxygen saturation 98% on room air. I spent over 60 minutes in consultation today. I discussed the case with the charge nurse, TAM Ku, along with the floor nurse, Rosalio. Currently, the patient is sitting at the edge of the bed eating her lunch. She is tolerating regular diet without any nausea symptoms. She started passing positive flatus yesterday and the surgeon advanced her diet therapy. No complications so far. The abdominal bloating has decreased with her increased flatus. She denies shortness of breath or chest pain. I stopped the CUSTOMER ENGAGEMENT REPRESENTATIVE yesterday evening and the patient's pain level seemed to be relatively unchanged from being on the CUSTOMER ENGAGEMENT REPRESENTATIVE yesterday and from being off the CUSTOMER ENGAGEMENT REPRESENTATIVE at this time, 16 hours later. The patient does still continues to complain of chronic pain. The patient has a good supply of oxycodone already at home. The patient has her own supply of marijuana at home. I did leave a prescription for Soma 60 tablets for outpatient usage. I have reviewed her current medication list. I would not change any doses or frequency at this time. I renewed the narcotics, which would shortly so that she can continue on her current analgesic regimen. Dr. Medina is aware of her status and will be given laxative treatment when he feels it is appropriate. The patient is on Colace b.i.d. as a stool softener but not any p.r.n. laxatives at this time. Noé Raphael M.D. DR: BRAULIO JOB#: [id number] CC:
--- NOTE | 2017-05-19 17:15 | Progress Note ---
DATE: 05/19/2017 ACUTE PAIN MANAGEMENT PHYSICIAN PROGRESS NOTE MEDICATIONS: Medication administration record reviewed. Medication include Protonix, , Zofran, Dilaudid, Marinol, Colace, Benadryl, Cepacol, Soma, Mylanta, and Tylenol. LABORATORY STUDIES: No interval laboratory studies. OBJECTIVE: VITAL SIGNS: Pain level 7/10 on the visual analog pain scale. Temperature afebrile. Pulse 86, respirations 19, blood pressure 136/65, and oxygen saturation 98% on room air. I spent over 60 minutes in consultation today. I discussed the case with the charge nurse, TAM Ku, along with the floor nurse, Rosalio. Currently, the patient is sitting at the edge of the bed eating her lunch. She is tolerating regular diet without any nausea symptoms. She started passing positive flatus yesterday and the surgeon advanced her diet therapy. No complications so far. The abdominal bloating has decreased with her increased flatus. She denies shortness of breath or chest pain. I stopped the FARM AGENT yesterday evening and the patient's pain level seemed to be relatively unchanged from being on the FARM AGENT yesterday and from being off the FARM AGENT at this time, 16 hours later. The patient does still continues to complain of chronic pain. The patient has a good supply of oxycodone already at home. The patient has her own supply of marijuana at home. I did leave a prescription for Soma 60 tablets for outpatient usage. I have reviewed her current medication list. I would not change any doses or frequency at this time. I renewed the narcotics, which would shortly so that she can continue on her current analgesic regimen. Dr. Medina is aware of her status and will be given laxative treatment when he feels it is appropriate. The patient is on Colace b.i.d. as a stool softener but not any p.r.n. laxatives at this time. Noé Raphael M.D. DR: BRAULIO JOB#: [id number] CC:
--- NOTE | 2017-05-19 17:15 | Progress Note ---
DATE: 05/19/2017 ACUTE PAIN MANAGEMENT PHYSICIAN PROGRESS NOTE MEDICATIONS: Medication administration record reviewed. Medication include Protonix, , Zofran, Dilaudid, Marinol, Colace, Benadryl, Cepacol, Soma, Mylanta, and Tylenol. LABORATORY STUDIES: No interval laboratory studies. OBJECTIVE: VITAL SIGNS: Pain level 7/10 on the visual analog pain scale. Temperature afebrile. Pulse 86, respirations 19, blood pressure 136/65, and oxygen saturation 98% on room air. I spent over 60 minutes in consultation today. I discussed the case with the charge nurse, TAM Ku, along with the floor nurse, Rosalio. Currently, the patient is sitting at the edge of the bed eating her lunch. She is tolerating regular diet without any nausea symptoms. She started passing positive flatus yesterday and the surgeon advanced her diet therapy. No complications so far. The abdominal bloating has decreased with her increased flatus. She denies shortness of breath or chest pain. I stopped the SALES AND MARKETING VICE PRESIDENT yesterday evening and the patient's pain level seemed to be relatively unchanged from being on the SALES AND MARKETING VICE PRESIDENT yesterday and from being off the SALES AND MARKETING VICE PRESIDENT at this time, 16 hours later. The patient does still continues to complain of chronic pain. The patient has a good supply of oxycodone already at home. The patient has her own supply of marijuana at home. I did leave a prescription for Soma 60 tablets for outpatient usage. I have reviewed her current medication list. I would not change any doses or frequency at this time. I renewed the narcotics, which would shortly so that she can continue on her current analgesic regimen. Dr. Medina is aware of her status and will be given laxative treatment when he feels it is appropriate. The patient is on Colace b.i.d. as a stool softener but not any p.r.n. laxatives at this time. Noé Raphael M.D. DR: BRAULIO JOB#: [id number] CC:
[2017-05-20] VITALS: BP 115/58
[2017-05-20] MEDS: oxyCODONE 15mg IR tab ORAL PRN ×5 (01:37→20:03)
[2017-05-20 04:00] VITALS: BP 122/71
[2017-05-20] MEDS: Dronabinol 2.5mg Cap ORAL SCH ×3 (06:05→21:24)
[2017-05-20 08:36] VITALS: BP 101/60
[2017-05-20] MEDS: Docusate 100mg cap ORAL SCH ×2 (09:55→20:25)
[2017-05-20 12:30] VITALS: BP 118/62
[2017-05-20 16:17] VITALS: BP 121/50
[2017-05-20 20:06] VITALS: BP 114/55
--- NOTE | 2017-05-21 | Progress Note ---
DATE: 05/20/2017 ACUTE PAIN MANAGEMENT PHYSICIAN PROGRESS NOTE OBJECTIVE: VITAL SIGNS: Afebrile, pulse 72, respirations 20, blood pressure 121/50, and oxygen saturation 99% on room air. LABORATORY STUDIES: No interval laboratory studies. MEDICATIONS: Medication administration record reviewed. Medications include Marinol, Protonix, and Colace. P.r.n. medications include Tylenol, Cepacol, Benadryl, Mylanta, Zofran, Soma, Dilaudid, Narcan, and oxycodone. I spent over 60 minutes in consultation today. I discussed the case with the surgeon, Dr. Medina. I saw the patient at bedside with the floor nurse, RN, Barbara. The patient has been taken off of the PUBLIC WELFARE DIRECTOR. The patient has been using her breakthrough doses of oxycodone and Soma for primary analgesia in combination with the scheduled Marinol. The patient seems to be tolerating the pain adequately. She does complain that the pain is severe and mostly at all times. However, she is advancing her functionality with ambulation in the hallways and going to the restroom. She appears to be in good spirits. The psychologist social is assisting the patient to contact her family in [place], who hopefully will be able to care for the patient when she is cleared to discharge from the hospital by the surgeon. The patient still has not yet had a bowel movement after anterior lumbar interbody fusion surgery, ALIF. Dr. Medina did advance the patient's diet and she is passing positive flatus and she does not have any nausea symptoms. The patient is considerably doing well despite nicotine withdrawal agitation from cold-turkey of cigarettes that she began in this hospital stay nearly a week ago. I will continue her current analgesic regimen as listed. We will continue to await a bowel movement and I will defer laxative usage to the surgeon, Dr. Medina, at this time. Noé Raphael M.D. DR: Patel JOB#: [id number] CC:
--- NOTE | 2017-05-21 | Progress Note ---
DATE: 05/20/2017 ACUTE PAIN MANAGEMENT PHYSICIAN PROGRESS NOTE OBJECTIVE: VITAL SIGNS: Afebrile, pulse 72, respirations 20, blood pressure 121/50, and oxygen saturation 99% on room air. LABORATORY STUDIES: No interval laboratory studies. MEDICATIONS: Medication administration record reviewed. Medications include Marinol, Protonix, and Colace. P.r.n. medications include Tylenol, Cepacol, Benadryl, Mylanta, Zofran, Soma, Dilaudid, Narcan, and oxycodone. I spent over 60 minutes in consultation today. I discussed the case with the surgeon, Dr. Medina. I saw the patient at bedside with the floor nurse, RN, Barbara. The patient has been taken off of the PUBLIC ADDRESS SYSTEM INSTALLER. The patient has been using her breakthrough doses of oxycodone and Soma for primary analgesia in combination with the scheduled Marinol. The patient seems to be tolerating the pain adequately. She does complain that the pain is severe and mostly at all times. However, she is advancing her functionality with ambulation in the hallways and going to the restroom. She appears to be in good spirits. The social services assistant is assisting the patient to contact her family in [place], who hopefully will be able to care for the patient when she is cleared to discharge from the hospital by the surgeon. The patient still has not yet had a bowel movement after anterior lumbar interbody fusion surgery, ALIF. Dr. Medina did advance the patient's diet and she is passing positive flatus and she does not have any nausea symptoms. The patient is considerably doing well despite nicotine withdrawal agitation from cold-turkey of cigarettes that she began in this hospital stay nearly a week ago. I will continue her current analgesic regimen as listed. We will continue to await a bowel movement and I will defer laxative usage to the surgeon, Dr. Medina, at this time. Noé Raphael M.D. DR: Patel JOB#: [id number] CC:
--- NOTE | 2017-05-21 | Progress Note ---
DATE: 05/20/2017 ACUTE PAIN MANAGEMENT PHYSICIAN PROGRESS NOTE OBJECTIVE: VITAL SIGNS: Afebrile, pulse 72, respirations 20, blood pressure 121/50, and oxygen saturation 99% on room air. LABORATORY STUDIES: No interval laboratory studies. MEDICATIONS: Medication administration record reviewed. Medications include Marinol, Protonix, and Colace. P.r.n. medications include Tylenol, Cepacol, Benadryl, Mylanta, Zofran, Soma, Dilaudid, Narcan, and oxycodone. I spent over 60 minutes in consultation today. I discussed the case with the surgeon, Dr. Medina. I saw the patient at bedside with the floor nurse, RN, Barbara. The patient has been taken off of the SCAFFOLD SETTER. The patient has been using her breakthrough doses of oxycodone and Soma for primary analgesia in combination with the scheduled Marinol. The patient seems to be tolerating the pain adequately. She does complain that the pain is severe and mostly at all times. However, she is advancing her functionality with ambulation in the hallways and going to the restroom. She appears to be in good spirits. The child welfare social worker is assisting the patient to contact her family in [place], who hopefully will be able to care for the patient when she is cleared to discharge from the hospital by the surgeon. The patient still has not yet had a bowel movement after anterior lumbar interbody fusion surgery, ALIF. Dr. Medina did advance the patient's diet and she is passing positive flatus and she does not have any nausea symptoms. The patient is considerably doing well despite nicotine withdrawal agitation from cold-turkey of cigarettes that she began in this hospital stay nearly a week ago. I will continue her current analgesic regimen as listed. We will continue to await a bowel movement and I will defer laxative usage to the surgeon, Dr. Medina, at this time. Noé Raphael M.D. DR: Patel JOB#: [id number] CC:
[2017-05-21 00:14] VITALS: BP 116/66
[2017-05-21] MEDS: oxyCODONE 15mg IR tab ORAL PRN ×5 (01:13→20:26)
[2017-05-21 04:37] VITALS: BP 111/63
[2017-05-21] MEDS: Dronabinol 2.5mg Cap ORAL SCH ×3 (06:12→21:53)
[2017-05-21] MEDS: Docusate 100mg cap ORAL SCH ×2 (08:18→21:52)
[2017-05-21 12:00] VITALS: BP 100/48
[2017-05-21] MEDS: Magnesium Citrate Liq Btl ORAL SCH ×2 (12:26→18:10)
[2017-05-21 16:00] VITALS: BP 125/76
[2017-05-21 19:53] VITALS: BP 119/68
--- NOTE | 2017-05-21 20:00 | Progress Note ---
DATE: 05/21/2017 ACUTE PAIN MANAGEMENT PHYSICIAN PROGRESS NOTE MEDICATIONS: Medication administration record reviewed. Medications include Marinol, Protonix, Colace. P.r.n. medications include Tylenol, Cepacol, Benadryl, Mylanta, Zofran, Soma, Dilaudid, Narcan, and oxycodone. LABORATORY STUDIES: No interval laboratory studies. OBJECTIVE: VITAL SIGNS: Within normal limits. Afebrile, pulse 64, respirations 17, blood pressure 100/48, and oxygen saturation 100% on room air. I spent over 60 minutes in consultation today. I saw the patient at bedside with the charge nurse, RN, Bety. I also evaluated the patient ambulating with a front wheel walker in the hallway. I encouraged better standing posture to avoid bending at the lumbar spine. The patient is passing positive flatus but still has not had a bowel movement. The surgeon, Dr. Medina evaluated the patient earlier this morning and ordered q.6 hour dosing of scheduled magnesium citrate until a bowel movement occurs. The patient denies any nausea and has been tolerating advancing diet with ease. The patient has been decreased in the frequency of her requests for breakthrough pain medications. She continues on a scheduled Marinol q.8 hours without any over sedation. She is using her Soma, for which I left a prescription in the outpatient chart. The patient already has a good supply of oxycodone at home and continues to use 30 mg instant relief here in the hospital q.3 to 4 hours. The patient is in good spirits and has been much more compliant using her incentive spirometer. After ambulation, she continues to improve. I agree with the surgeon, Dr. Medina for the patient to discharge from the hospital once she has a bowel movement. While she is in the hospital, she will continue with sequential compression pneumatic devices in place for DVT prophylaxis. Noé Raphael M.D. DR: BRAULIO JOB#: [id number] CC:
[2017-05-21 23:50] VITALS: BP 119/56
[2017-05-22 04:00] VITALS: BP 132/80
[2017-05-22] MEDS: Dronabinol 2.5mg Cap ORAL SCH (05:41)
[2017-05-22 08:05] VITALS: BP 124/63
[2017-05-22] MEDS: Docusate 100mg cap ORAL SCH (08:29)
[2017-05-22] MEDS ORDERED: SOMA350 MG PO (09:19)
--- NOTE | 2017-05-22 15:00 | Progress Note ---
DATE: 05/22/2017 ACUTE PAIN MANAGEMENT PHYSICIAN PROGRESS NOTE MEDICATIONS: Medication administration record reviewed. Medications include Marinol, Protonix, and Colace. P.r.n. medications include Tylenol, Cepacol, Benadryl, Mylanta, Zofran, and Soma. LABORATORY STUDIES: No interval laboratory studies. OBJECTIVE: VITAL SIGNS: Normal, afebrile, pulse 80, respirations 18, blood pressure 119/56, and oxygen saturation 96% on room air. I spent over 60 minutes in consultation today. I saw the patient at bedside. I discussed the case with the nurse RN, Keaton. The patient continues to improve her ambulation. She used two doses of full bottle of magnesium citrate with positive results. She has had multiple loose stools over the past eight hours. Her abdomen is decompressed and she has no nausea symptoms. She has been off of parental narcotics for over 36 hours and has a supply of oxycodone tablets already at home. I did leave a prescription for Soma and the patient has access to marijuana, which she will use when she leave the hospital. studio operations manager has helped arrange for the patient to be picked up by a local friend in [place]. We will transport her to extended family in [facility]. Now, the patient has had a bowel movement and is ambulating well. I would expect discharge from the hospital later today. With normal vital signs and improved clinical condition, I see no contraindication for discharge trial at this time. The patient will follow up in Dr. Medina' outpatient surgical clinic for surgical followup. Noé Raphael M.D. DR: JUAN JOSÉ JOB#: [id number] CC:
--- NOTE | 2017-05-23 17:29 | Discharge Summary ---
Discharge Summary Hospital Course Date of Admission May 14, 2017 at 06:21 Date of Discharge May 22, 2017 at 13:00 Admitting Diagnosis HPI Lu Lindquist is a 31 year old female who was admitted on May 14, 2017 at 06: 21 for Lumbar Discogenic Back Pain Hospital Course [id number] Discharge Discharge Disposition Patient was discharged to Home (01) Discharge Diagnoses: Roula Patel NP May 23, 2017 17:29
--- NOTE | 2017-05-23 17:29 | Discharge Summary ---
Discharge Summary Hospital Course Date of Admission May 14, 2017 at 06:21 Date of Discharge May 22, 2017 at 13:00 Admitting Diagnosis HPI Lu Lindquist is a 31 year old female who was admitted on May 14, 2017 at 06: 21 for Lumbar Discogenic Back Pain Hospital Course [id number] Discharge Discharge Disposition Patient was discharged to Home (01) Discharge Diagnoses: Roula Patel NP May 23, 2017 17:29
--- NOTE | 2017-05-23 17:29 | Discharge Summary ---
Discharge Summary Hospital Course Date of Admission May 14, 2017 at 06:21 Date of Discharge May 22, 2017 at 13:00 Admitting Diagnosis HPI Lu Lindquist is a 31 year old female who was admitted on May 14, 2017 at 06: 21 for Lumbar Discogenic Back Pain Hospital Course [id number] Discharge Discharge Disposition Patient was discharged to Home (01) Discharge Diagnoses: Roula Patel NP May 23, 2017 17:29
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
== END 2017-05-22 13:00 | disposition home or self-care (01) | DRG 460 ==
LOC: SDSOVERFLO 06:21 → 3E 16:15
PROC: 0SG30AJ Fusion of Lumbosacral Joint with Interbody Fusion Device, Posterior Approach, Anterior Column, Open Approach (ICD-10-PCS; principal; 2017-05-14 08:30)
PROC: 0SG00A0 Fusion of Lumbar Vertebral Joint with Interbody Fusion Device, Anterior Approach, Anterior Column, Open Approach (ICD-10-PCS; principal; 2017-05-14 08:30)
PROC: 4A11X4G Monitoring of Peripheral Nervous Electrical Activity, Intraoperative, External Approach (ICD-10-PCS; principal; 2017-05-14 08:30)
PROC: 0SG00AJ Fusion of Lumbar Vertebral Joint with Interbody Fusion Device, Posterior Approach, Anterior Column, Open Approach (ICD-10-PCS; principal; 2017-05-14 08:30)
PROC: 0ST40ZZ Resection of Lumbosacral Disc, Open Approach (ICD-10-PCS; principal; 2017-05-14 08:30)
PROC: 3E0U0GB Introduction of Recombinant Bone Morphogenetic Protein into Joints, Open Approach (ICD-10-PCS; principal; 2017-05-14 08:30)
PROC: 0ST20ZZ Resection of Lumbar Vertebral Disc, Open Approach (ICD-10-PCS; principal; 2017-05-14 08:30)
PROC: 0SG30A0 Fusion of Lumbosacral Joint with Interbody Fusion Device, Anterior Approach, Anterior Column, Open Approach (ICD-10-PCS; principal; 2017-05-14 08:30)
DX: M53.2X7 Spinal instabilities, lumbosacral region (principal); Z68.41 Body mass index [BMI] 40.0-44.9, adult; M53.2X6 Spinal instabilities, lumbar region; G89.18 Other acute postprocedural pain; E66.01 Morbid (severe) obesity due to excess calories; M54.16 Radiculopathy, lumbar region; M54.17 Radiculopathy, lumbosacral region; F17.210 Nicotine dependence, cigarettes, uncomplicated; F12.90 Cannabis use, unspecified, uncomplicated; R06.09 Other forms of dyspnea
CPT/HCPCS: 36415; 72020; 76001; 81025; 86850; 86900; 86901; 87081; 94003; 94150; J2250; J2405; J2710